=== PATIENT | male | born 2000 | race Two or more races ===

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

== ENCOUNTER 2021-01-02 17:04 | Emergency (ER) | payer MEDICAID, OTHER ==
[~2021-01-02] VITALS: Ht 180.3 cm; Wt 75.0 kg
[~2021-01-02 17:04] MED LIST: OXCA300T57 PO
[2021-01-02] MEDS ORDERED: ACETAMINOPHEN 325 MG TABLET PO ONE (18:45)
[2021-01-02] MEDS ORDERED: OXcarbazepine 300 MG TABLET PO ONE (18:45)
[2021-01-02 19:43] VITALS: BP 131/61
[2021-01-02] MEDS ORDERED: KETOROLAC TROMETHAMINE 30 MG/ML VIAL IM ONE (20:30)
== END 2021-01-02 20:45 | disposition home or self-care (01) ==
LOC: EMS 17:54
DX: G40.89 Other seizures (principal); F17.210 Nicotine dependence, cigarettes, uncomplicated; F12.90 Cannabis use, unspecified, uncomplicated
CPT/HCPCS: 70450; 96372; 99284; J1885